=== PATIENT | female | born 1975 | race Caucasian/White ===

== ENCOUNTER 2019-08-13 03:34 | Emergency (ER) | payer SELFPAY ==
[2019-08-13 03:58] LABS: #Basophils 0.1 thou/uL (0.0-0.2); #Eosinphils 0.2 thou/uL (0.0-0.7); #Monocytes 0.7 thou/uL (0.11-0.59); #Neutrophils 5.6 thou/uL (1.40-6.50); %Basophils 0.7 % (0.0-1.0); %Eosinophils 2.4 % (0.0-10.0); %Monocytes 8.2 % (0.0-10.0); %Neutrophils 65.7 % (42.0-75.0); Hemoglobin 13.8 g/dL (12.0-16.0); Mean Corpuscular HGB CONC 33.3 g/dL (32.0-36.0); Mean Corpuscular Hemoglobin 28.3 pg (27.0-31.0); Mean Corpuscular Volume 84.8 fL (78.0-98.0); Mean Platelet Volume 6.5 fL (7.4-10.4); Platelet Count 256 thou/uL (130-400); RBC Distribution Width 13.2 % (11.5-14.5); Red Blood Cell (RBC) Count 4.89 mill/uL (4.20-5.40); White Blood Cell (WBC) Count 8.5 thou/uL (4.8-10.8)
[2019-08-13 04:19] LABS: ALT (SGPT) 14 U/L (8-55); AST (SGOT) 16 U/L (5-34); Alkaline Phosphatase 69 U/L (40-150); Anion Gap 12 mmol/L (10-20); BUN (Urea Nitrogen) 21 mg/dL (7.0-18.7); Bilirubin, Total 0.2 mg/dL (0.2-1.2); Calc. Creatinine Clearance 0 mL/min (70-130); Calcium 8.7 mg/dL (7.8-10.44); Carbon Dioxide 24 mmol/L (22-29); Chloride 109 mmol/L (98-107); Estimated GFR-MDRD 56; Glucose 90 mg/dL (70-105); Lipase 21 U/L (8-78); Potassium 3.6 mmol/L (3.5-5.1); Sodium 141 mmol/L (136-145)
[2019-08-13 05:50] LABS: Bacteria/HPF 4+ HPF (None Seen); Bilirubin Negative (Negative); Blood, Urine Negative (Negative); Clarity Turbid (Clear); Glucose, Urine (Dipstick) Normal (Negative); Leukocyte 500 Leu/uL (Negative); Nitrite 2+ (Negative); Protein, Urine (Dipstick) 20 mg/dL (Neg-Trace); RBC/HPF 0-3 HPF (0-3); Urobilinogen Normal mg/dL (Less than 2); WBC/HPF 21-50 HPF (0-3)
--- NOTE | 2019-08-13 07:45 | CT ---
CTA OF THORAX UTILIZING IV CONTRAST PE PROTOCOL 3D REFORMATTED IMAGING: Date: 08/12/19 INDICATION: 44-year-old female with chest pain for 2 days. COMPARISON: None. FINDINGS: No central or segmental pulmonary embolus is demonstrated. The heart and great vessels appear within normal limits. No pathologically enlarged lymph node is evident within the mediastinum, hilar, or axi llary region. There is a 6 mm ground-glass nodule seen within the anterior right upper lobe, adjacent to the right minor fissure, on image 57 of series 3. No additional pulmonary nodule is evident. Ther e is subsegmental volume loss within the lower lingula. There is a small to moderate size hiatal gloria ia. Small focal region of low density is seen within the proximal jejunum which may reflect some nicholas sted material within the jejunum. No obstructive type changes are seen with upstream loops of the duo denum or stomach. Adrenal glands are normal appearing. No acute osseous abnormality is evident. IMPRESSION: 1. No central or segmental pulmonary embolus identified. 2. Small 6 mm ground-glass nodule within the anterior right upper lobe may be related to an area of peripheral subsegmental volume loss. Small area of pneumonitis could also have a similar appearance. Follow-up CT in 6-8 weeks may be helpful to document resolution. 3. Small to moderate size hiatal hernia. 4. Oval region of low density seen in the region of the lumen of the proximal jejunum. This is nonsp ecific and may reflect a focal region of ingested material. A small, poorly discerned intramural lipo ma could also have a similar appearance. There is no obstructive type physiological changes involving the upstream small intestine. If clinically indicated, a follow-up CT of the abdomen with and withou t contrast and utilization of enteric contrast may be helpful for further characterization of this fi nding. POS: [id number]
--- NOTE | 2019-08-13 09:15 | RAD ---
FRONTAL RADIOGRAPH CHEST PORTABLE UPRIGHT: DATE: 08/13/2019. COMPARISON: 02/14/2010. HISTORY: Left-ided chest pain with arm pain. FINDINGS: Heart and mediastinal contours unremarkable. No pneumothorax, pleural fluid, focal consolidation, or alveolar edema. IMPRESSION: No acute findings - stable appearance of the chest. POS: OFF
[2019-08-13] MEDS ORDERED: ISOVUE-370 76%-LOCM 1 ML ONE (13:10)
== END 2019-08-13 07:29 | disposition home or self-care (01) ==
LOC: ERS 03:34
DX: R07.89 Other chest pain (principal); F17.210 Nicotine dependence, cigarettes, uncomplicated
CPT/HCPCS: 71045; 71275; 80053; 81003; 81015; 83690; 84484; 85025; 85379; 93005; Q9966

== ENCOUNTER 2023-08-06 20:04 | Emergency (ER) | payer OTHER, SELFPAY ==
[2023-08-06 20:46] LABS: #Eosinphils 0.2 thou/uL (0.0-0.7); #Monocytes 0.5 thou/uL (0.11-0.59); #Neutrophils 2.9 thou/uL (1.40-6.50); %Basophils 0.8 % (0.0-1.0); %Eosinophils 4.2 % (0.0-10.0); %Lymphocytes 31.4 % (21.0-51.0); %Neutrophils 54.2 % (42.0-75.0); Hematocrit 40.8 % (36.0-47.0); Hemoglobin 13.2 g/dL (12.0-16.0); Mean Corpuscular HGB CONC 32.4 g/dL (32.0-36.0); Mean Corpuscular Hemoglobin 27.2 pg (27.0-31.0); Mean Platelet Volume 9.3 fL (7.4-10.4); Platelet Count 247 10x3/uL (130-400); RBC Distribution Width 14.3 % (11.5-14.5); Red Blood Cell (RBC) Count 4.86 mill/uL (4.20-5.40); White Blood Cell (WBC) Count 5.3 10x3/uL (4.8-10.8)
[2023-08-06 21:11] LABS: ALT (SGPT) 14 U/L (8-55); AST (SGOT) 17 U/L (5-34); Albumin 3.7 g/dL (3.5-5.0); Alkaline Phosphatase 82 U/L (40-110); Anion Gap 10 mmol/L (10-20); BUN (Urea Nitrogen) 18 mg/dL (7.0-18.7); Bilirubin, Total 0.2 mg/dL (0.2-1.2); Calc. Creatinine Clearance 0 mL/min (70-130); Calcium 8.7 mg/dL (7.8-10.44); Carbon Dioxide 25 mmol/L (22-29); Chloride 107 mmol/L (98-107); Estimated GFR 86; Globulin 2.3 g/dL (2.4-3.5); Glucose 112 mg/dL (70-105); Potassium 3.7 mmol/L (3.5-5.1); Sodium 138 mmol/L (136-145)
[2023-08-06 21:13] LABS: Troponin I Less than 0.010 ng/mL (< 0.028)
[2023-08-06] MEDS ORDERED: Aspirin Chewable 81 MG TAB ONE (21:41)
[2023-08-06] MEDS ORDERED: Mag-Al 1200 mg/1200 mg/30 ML UDCUP ONE (21:41)
[2023-08-07 00:10] LABS: Troponin I Less than 0.010 ng/mL (< 0.028)
== END 2023-08-07 00:38 | disposition home or self-care (01) ==
LOC: ERS 20:04
DX: K21.00 Gastro-esophageal reflux disease with esophagitis, without bleeding (principal); F17.210 Nicotine dependence, cigarettes, uncomplicated
CPT/HCPCS: 36415; 71045; 80053; 84484; 85025; 93005; 94760

== ENCOUNTER 2024-06-09 22:27 | Observation (INO) | payer BC ==
[2024-06-09 23:16] LABS: #Basophils 0.04 10x3/uL (0.0-0.2); %Basophils 0.6 % (0.0-1.0); %Eosinophils 2.2 % (0.0-10.0); %Lymphocytes 28.2 % (21.0-51.0); %Monocytes 8.4 % (0.0-10.0); %Neutrophils 60.3 % (42.0-75.0); Hemoglobin 12.5 g/dL (12.0-16.0); Mean Corpuscular HGB CONC 32.1 g/dL (32.0-36.0); Mean Corpuscular Hemoglobin 27.1 pg (27.0-31.0); Mean Corpuscular Volume 84.6 fL (78.0-98.0); Mean Platelet Volume 9.1 fL (7.4-10.4); Platelet Count 250 10x3/uL (130-400); RBC Distribution Width 14.4 % (11.5-14.5); Red Blood Cell (RBC) Count 4.61 mill/uL (4.20-5.40)
[2024-06-09 23:51] LABS: ALT (SGPT) 11 U/L (8-55); AST (SGOT) 17 U/L (5-34); Albumin 4.2 g/dL (3.5-5.0); Alkaline Phosphatase 90 U/L (40-110); Anion Gap 13 mmol/L (10-20); BUN (Urea Nitrogen) 18 mg/dL (9.8-20.1); Bilirubin, Total 0.2 mg/dL (0.2-1.2); Calc. Creatinine Clearance 0 mL/min (70-130); Calcium 10.2 mg/dL (7.8-10.44); Carbon Dioxide 25 mmol/L (22-29); Chloride 104 mmol/L (98-107); Estimated GFR 82; Globulin 2.8 g/dL (2.4-3.5); Glucose 78 mg/dL (70-105); Sodium 138 mmol/L (136-145)
[2024-06-09 23:53] LABS: Troponin I 0.011 ng/mL (< 0.028)
[2024-06-10] MEDS ORDERED: Aspirin Chewable 81 MG TAB ONE (00:38)
[2024-06-10 04:42] LABS: Bilirubin Negative (Negative); Blood, Urine Negative (Negative); CAUTI Indications for Culture Pelvic or flank pain; Clarity Clear (Clear); Glucose, Urine (Dipstick) Normal (Negative); Ketone, Urine Negative (Negative); Leukocyte 75 Leu/uL (Negative); Nitrite Negative (Negative); Protein, Urine (Dipstick) Negative (Neg-Trace); Squamous Epithelial 0-3 HPF (0-3); Urobilinogen Normal mg/dL (Less than 2)
[2024-06-10 04:43] LABS: Bacteria/HPF Rare-Few HPF (None Seen); Urine Culture Reflex No No
[2024-06-10 04:53] LABS: Troponin I Less than 0.010 ng/mL (< 0.028)
[2024-06-10 05:02] VITALS: BMI 24.5
[2024-06-10] MEDS ORDERED: Acetaminophen 325 MG TAB PO PRN (05:30)
[2024-06-10] MEDS ORDERED: Ondansetron ODT 4 MG TAB SL PRN (05:30)
[2024-06-10] MEDS ORDERED: Ondansetron PF 4 MG/2 ML Vial IVP PRN ×2 (05:30→05:38)
[2024-06-10] MEDS ORDERED: Nitroglycerin 0.4 MG TAB (25 Tab Bottle) SL PRN (05:37)
[2024-06-10] MEDS ORDERED: Ondansetron ODT 4 MG TAB PO PRN (05:38)
[2024-06-10 08:05] LABS: Troponin I Less than 0.010 ng/mL (< 0.028)
[2024-06-10] MEDS: Aspirin Chewable 81 MG TAB PO SCH (08:05)
[2024-06-10] MEDS: Famotidine 20 MG TAB PO SCH (08:05)
[2024-06-10] MEDS: Famotidine/PF 20 mg/2ml Vial SLOW IVP SCH (08:05)
[2024-06-10 08:49] VITALS: TEMP 97.6
[2024-06-10] MEDS ORDERED: Regadenoson 0.4 MG/5 ML SYRINGE ONE (11:01)
[2024-06-10 12:36] VITALS: BP 129/79
== END 2024-06-10 15:32 | disposition home or self-care (01) ==
LOC: ERS 22:27 → 2SW 06-10 02:30
PROVIDERS: ADMIT Student in an Organized Health Care Education/Training Program; ATTEND Hospitalist
PROC: B246ZZZ Ultrasonography of Right and Left Heart (ICD-10-PCS; principal; 2024-06-10)
DX: R07.89 Other chest pain (principal); I08.1 Rheumatic disorders of both mitral and tricuspid valves; J45.909 Unspecified asthma, uncomplicated; F41.9 Anxiety disorder, unspecified; F32.A Depression, unspecified; F17.210 Nicotine dependence, cigarettes, uncomplicated
CPT/HCPCS: 36415; 71045; 78452; 80053; 81001; 83690; 84484; 85025; 93005; 93017; 93306; A9502; G0378; J2785